=== PATIENT | male | born 1965 | race American Indian/Alaskan Native ===

== ENCOUNTER 2017-07-24 21:32 | Emergency (ER) | payer OTHER ==
[2017-07-24 22:05] LABS: Basophils % (Auto) 0.3 % (0.0-1.8); Hematocrit 44.8 % (35.5-45.6); Mean Corpuscular HGB Conc 34 % (32-34); Mean Corpuscular Hemoglobin 31 pg (28-32); Mean Corpuscular Volume 91 fl (84-94); Platelet Count 121 K/mm3 (140-440); Red Blood Count 4.92 M/mm3 (3.65-5.03); Red Cell Distribution Width 14.1 % (13.2-15.2); White Blood Count 11.2 K/mm3 (4.5-11.0)
[2017-07-24 22:25] LABS: Albumin 4.7 g/dL (3.9-5); Albumin/Globulin Ratio 1.5 %; Bilirubin,Total 0.5 mg/dL (0.1-1.2); Calcium 9.3 mg/dL (8.4-10.2); Chloride 95.4 mmol/L (98-107); Magnesium 2.4 mg/dL (1.7-2.3); Potassium 3.7 mmol/L (3.6-5.0); Total Protein 7.8 g/dL (6.3-8.2)
[2017-07-24] MEDS ORDERED: NACL 0.9% 1000 ML 1,000 ML ONE (22:30)
--- NOTE | 2017-07-24 22:55 | Cat Scan Report ---
FINAL REPORT EXAM: CT HEAD/BRAIN WO CON HISTORY: AMS TECHNIQUE: CT head without contrast PRIORS: None. FINDINGS: There is acute hyperdense right posterior temporal/occipital subcortical hemorrhage measuring 3.2 x 1.9 centimeters. No evidence for midline shift or mass effect. Ventricles and sulci are within normal limits. No additional acute parenchymal findings. There is hypodensity within left temporal white matter and smaller area of hypodensity in the right temporal white matter consistent with remote infarcts. Bony calvarium is intact. Visualized portions of the paranasal sinuses and mastoids are unremarkable IMPRESSION: Acute right posterior temporal parenchymal hemorrhage 3.2 x 1.9 centimeters
[2017-07-24] MEDS ORDERED: NORMODYNE IV ONE (23:05)
[2017-07-24] MEDS ORDERED: SUBLIMAZE IV ONE (23:20)
--- NOTE | 2017-07-24 23:25 | Emergency Department Report ---
HPI - General Chief Complaint: Altered Mental Status Time Seen by Provider: 07/24/17 23:06 - HPI HPI: The patient is a 52-year-old male who presents for evaluation of altered mental status. The patient was found on scene via EMS with drowsiness and decreased alertness and abnormal respirations approximately 30 minutes prior to arrival. He subsequently exhibited an episode of agitation. The patient complains of [id number] aching in quality headache since this afternoon, greater than 8 hours prior to my evaluation, constant since onset, currently 5/10 in severity. The patient denies trauma to the head, neck pain or stiffness, chest pain, dyspnea, hemoptysis, abdominal pain, paresthesias, motor deficit in the arms or legs. ED Past Medical Hx - Past Medical History Previous Medical History?: Yes Hx Hypertension: Yes - Surgical History Past Surgical History?: No - Social History Smoking Status: Never Smoker Substance Use Type: Alcohol - Medications Home Medications: Home Medications Medication Instructions Recorded Confirmed Last Taken Type Unobtainable 07/25/17 07/25/17 Unknown History ED Review of Systems ROS: Stated complaint: POSS SEIZURE Other details as noted in HPI Constitutional: denies: fever ENT: denies: throat or neck pain Respiratory: denies: cough, shortness of breath Cardiovascular: denies: chest pain Endocrine: denies unexplained weight loss or gain Gastrointestinal: denies: abdominal pain, nausea Genitourinary: denies: dysuria Musculoskeletal: denies: leg swelling Skin: denies: rash Neurological: reports headache Hematological/Lymphatic: denies: easy bleeding or easy bruising Psych: denies sadness or hopelessness Physical Exam - Physical Exam Vital Signs: Vital Signs 07/24/17 07/24/17 21:42 21:45 Temperature 97.9 F Pulse Rate 98 H Respiratory 16 16 Rate Blood Pressure 173/106 O2 Sat by Pulse 92 92 Oximetry Physical Exam: General: well-nourished, well-developed, no acute distress Head: Normocephalic, atraumatic Eyes: normal sclera ENT: Mucous membranes are pink and moist Neck: trachea midline, neck supple, No neck stiffness, no cervical adenopathy Respiratory: Breath sounds equal bilaterally, no wheezing, rales, or rhonchi Cardio: S1 and S2 present, no murmurs, rubs, gallops, capillary refill is brisk Abdomen: Normoactive bowel sounds, soft abdomen, no rigidity, no guarding or rebound tenderness Musc: No pitting edema Skin: No rash Neuro: Mild to moderate drowsiness, easily arousable, GCS of 15, no facial drooping, normal speech, no sensation motor deficit in the arms or legs, no coordination deficit, Babinski downgoing Psych: Normal affect ED Course Vital Signs 07/24/17 07/24/17 21:42 21:45 Temperature 97.9 F Pulse Rate 98 H Respiratory 16 16 Rate Blood Pressure 173/106 O2 Sat by Pulse 92 92 Oximetry ED Medical Decision Making - Lab Data Result diagrams: 07/24/17 21:44 07/24/17 21:44 - Medical Decision Making The patient was seen and examined by myself. The patient is placed on a clinical research monitor and continuous pulse ox. On initial evaluation, the patient was found to be in no distress. Evaluation orders were placed. The patient is given IV fentanyl for his pain and IV labetalol for elevated blood pressure. CT scan the head reveals an acute right temporal parenchymal hemorrhage. The patient was reevaluated and found to remain with significantly elevated blood pressure. The patient started on a cardene drip. Multiple bedside assessments were performed to assess patient responsiveness to antihypertensive infusion. Lab results revealed elevated WBC of 11, CK of 1300, and elevated lactic acid 7. On reevaluation the patient's found to have decrease in blood pressure below 160/90. 500cc NS fluid bolus is given for txt of lactic acidosis and elevated CK. Dr. Lamb, the on-call neuro chemicals fermentation operator at [facility] was contacted. He agreed to accept transfer of the patient. He requested that the patient received IV Keppra. The patient was given the IV Keppra as requested. The patient is transferred to [facility]. Critical Care Time: Yes Critical care time in (mins) excluding proc time.: 35 Critical care attestation.: Due to the critical nature of this patients presentation, which necessitated multiple bedside assessments, manipulation and supportive measures to prevent further life threatening deterioration, I would like to bill for a total of 35 minutes of critical care time. This was exclusive of any separately billable procedures. Critical Care Time: 35 ED Disposition Clinical Impression: Hypertensive emergency, Stroke due to intracerebral hemorrhage, Lactic acidosis Acute headache Qualifiers: Headache type: unspecified Intractability: not intractable Qualified Code(s): R51 - Headache Disposition: DC/TX-70 ANOTHER TYPE HLTHCARE Is pt being admited?: No Does the pt Need Aspirin: No Condition: Critical Instructions: Hypertension (ED) Referrals: PRIMARY CARE, [Primary Care Provider] - 3-5 Days Time of Disposition: 23:01
[2017-07-24] MEDS ORDERED: KEPPRA 1,000 MG/NS 0.75% 100ML 1,000 MG/100 ML BAG IV ONE (23:40)
[2017-07-24] MEDS ORDERED: CARDENE 50 MG in NACL 0.9% 250ML 230 ML IV SCH (23:45)
[2017-07-25] VITALS: BP 147/94
[2017-07-25 00:13] LABS: INR 1.07 (0.87-1.13)
[2017-07-25 00:14] LABS: Partial Thromboplastin Time 30.9 Sec. (24.2-36.6)
[2017-07-25] MEDS ORDERED: NACL 0.9% 500 ML 500 ML IV ONE (00:57)
== END 2017-07-25 02:00 | disposition other institution (70) ==
LOC: EDBD → ED 21:32
DX: I62.9 Nontraumatic intracranial hemorrhage, unspecified (principal); E87.2 Acidosis; R51 Headache; I10 Essential (primary) hypertension
CPT/HCPCS: 36415; 70450; 80053; 82140; 82550; 83735; 84443; 84484; 85025; 85610; 85670; 85730; 93005; 93010; 96365; 96375; 99291; G0480; J1953; J3010; J7030; J7050; 80320